=== PATIENT | male | born 1950 | race Caucasian/White ===

== ENCOUNTER 2017-11-11 17:03 | Emergency (ER) | payer MEDICARE, BC ==
--- NOTE | 2017-11-11 17:46 | EDM.PDOC ---
ED HPI GENERAL MEDICAL PROBLEM - General Chief Complaint: Genitourinary Problem Stated Complaint: can't pee Time Seen by Provider: 11/11/17 17:30 Source of Information: Reports: Patient History Limitations: Reports: No Limitations - History of Present Illness INITIAL COMMENTS - FREE TEXT/NARRATIVE: Patient presents this evening on his way home from [place]. Last week he had a TURP performed by Dr. Seymour. Today they did remove his catheter at approximately 10:30 this morning. He has not been able to urinate and currently has extreme urge to go. He has no other complaints at this time. He and his live in [place]. TURP performed for BPH with urinary obstruction. Onset: Today, Gradual Associated Symptoms: Reports: No Other Symptoms - Related Data Allergies Allergy/AdvReac Type Severity Reaction Status Date / Time No Known Allergies Allergy Verified 11/11/17 17:25 Home Meds: Home Meds . [Unable to Verify Home Med List] 11/11/17 [History] Past Medical History Genitourinary History: Reports: BPH Endocrine/Metabolic History: Reports: Diabetes, Type II - Past Surgical History Male Surgical History: Reports: TURP-Transurethral Resection of Prostate Social & Family History - Tobacco Use Smoking Status *Q: Unknown Ever Smoked ED ROS GENERAL - Review of Systems Review Of Systems: See Below Constitutional: Reports: No Symptoms HEENT: Reports: No Symptoms Respiratory: Reports: No Symptoms Cardiovascular: Reports: No Symptoms Endocrine: Reports: No Symptoms GI/Abdominal: Reports: No Symptoms : Reports: Urgency, Urinary Retention Musculoskeletal: Reports: No Symptoms Skin: Reports: No Symptoms Neurological: Reports: No Symptoms Psychiatric: Reports: No Symptoms ED EXAM, RENAL/ - Physical Exam Exam: See Below Exam Limited By: No Limitations General Appearance: Alert, WD/WN, Mild Distress Neck: Normal Inspection, Supple, Non-Tender, Full Range of Motion Respiratory/Chest: No Respiratory Distress, Lungs Clear, Normal Breath Sounds, No Accessory Muscle Use, Chest Non-Tender Cardiovascular: Normal Peripheral Pulses, Regular Rate, Rhythm, No Edema, No Gallop, No JVD, No Murmur, No Rub GI/Abdominal: Normal Bowel Sounds, Soft, Distended (lower abdomen distended and painful.), Other Neurological: Alert, Oriented, CN II-XII Intact, Normal Cognition, Normal Gait, Normal Reflexes, No Motor/Sensory Deficits Skin Exam: Warm, Dry, Intact, Normal Color, No Rash ED PROCEDURES - Additional/Other Procedure(s) Procedure(s) (Free Text): 20 mongolian coude catheter inserted. 750 mL of blood urine flowed into catheter bag. Patient tolerated well. Course - Vital Signs Last Recorded V/S: Last Vital Signs Temp 36.3 C 11/11/17 17:23 Pulse 77 11/11/17 17:23 Resp 18 11/11/17 17:23 BP 139/71 11/11/17 17:23 Pulse Ox 96 11/11/17 17:23 - Re-Assessments/Exams Free Text/Narrative Re-Assessment/Exam: 11/12/17 06:43 Palak Castillo RN, inserted catheter. Urologist advised leaving in until follow up appointment next week. Will attempt to remove next week. Departure - Departure Time of Disposition: 17:30 Disposition: Home, Self-Care 01 Condition: Good Clinical Impression: Benign prostatic hyperplasia with urinary retention - Discharge Information Instructions: [facility], Adult Referrals: Gideon Reid MD [Primary Care Provider] - Forms: ED Department Discharge Additional Instructions: I visited with Dr. Seymour who advised you keep this catheter in for the week and schedule a follow up next week to attempt to remove it and have normal urinary function. If you have any additional questions make sure to either call Dr. Seymour or you can always call us at anytime. Try to call his office in the morning and get an appointment on the 8th when you are going to be in [place] for an oncology appointment. Please call with any questions or concerns. ED Communication - Discussed Case With (1) Discussed Case With (1): Outpatient Provider (review of patient with Dr. Seymour , urologist at [facility]. He performed patient's TURP. Explained urinary retention issues and he advised placing 18-20 FR coude indwelling catheter and a follow up appointment for next week for another attempt at catheter removal.) - Problem List & Annotations (1) Benign prostatic hyperplasia with urinary retention SNOMED Code(s): 744180471 Code(s): N40.1 - BENIGN PROSTATIC HYPERPLASIA WITH LOWER URINARY TRACT SYMP; R33.8 - OTHER RETENTION OF URINE Status: Acute Priority: Low - Problem List Review Problem List Initiated/Reviewed/Updated: Yes - Assessment/Plan Assessment:: urinary retention post TURP Plan: I visited with Dr. Seymour who advised you keep this catheter in for the week and schedule a follow up next week to attempt to remove it and have normal urinary function. If you have any additional questions make sure to either call Dr. Seymour or you can always call us at anytime. Try to call his office in the morning and get an appointment on the when you are going to be in [place] for an oncology appointment. Please call with any questions or concerns.
== END 2017-11-11 18:17 | disposition home or self-care (01) ==
LOC: VM.ED 17:03
DX: N40.1 Benign prostatic hyperplasia with lower urinary tract symptoms (principal); R33.8 Other retention of urine; E11.9 Type 2 diabetes mellitus without complications
CPT/HCPCS: 51702; 99283; 99283-GF